=== PATIENT | female | born 1950 | race Caucasian/White ===

== ENCOUNTER 2018-09-23 20:20 | Emergency (ER) | payer MEDICAID ==
[~2018-09-23] VITALS: Ht 152.4 cm; Wt 61.3 kg
[2018-09-23 20:25] VITALS: BP 253/151
--- NOTE | 2018-09-23 20:30 | NUR ---
PT TAKEN TO BED 11
--- NOTE | 2018-09-23 20:37 | NUR ---
PT TO ED WITH C/O HEADACHE AND COUGH SUDDEN ONSET THIS AFTERNOON. NO S/S OF NEURO DEFICT. PT IS ALERT TO NAME, BIRTHDAY, PLACE, EVENT. LUNG SOUNDS CLEAR TO ASCULTATION. PT PLACED INTO BED, PENDING MD WEN. NO S/S OF DISTRESS NOTED.
--- NOTE | 2018-09-23 20:38 | NUR ---
ER NOTIFIED OF BP
--- NOTE | 2018-09-23 20:42 | NUR ---
PT TAKEN TO XRAY
--- NOTE | 2018-09-23 20:46 | NUR ---
PT RETURN FROM XRAY
--- NOTE | 2018-09-23 21:08 | NUR ---
Dr. Arriaga evaluating patient at bedside.
[2018-09-23] MEDS ORDERED: PROMETH/CODEINE 6.25-10MG/5ML 5 ML UDC PO ONE (21:20)
[2018-09-23] MEDS ORDERED: cloNIDine 0.1 MG TAB PO ONE ×2 (21:20→23:20)
[2018-09-23] MEDS ORDERED: ASPIRIN 81 MG TAB.CHEW PO ONE (21:20)
--- NOTE | 2018-09-23 21:34 | NUR ---
EKG PERFORMED AT BEDSIDE WITH FAMILY MEMBER PRESENT. PT COVERED IN GOWN DURING PROCEDURE.
--- NOTE | 2018-09-23 21:45 | NUR ---
PT TAKEN TO CT
--- NOTE | 2018-09-23 21:54 | NUR ---
RETURN FROM CT
[2018-09-23 21:58] LABS: ANION GAP 8.8 (8-16); CARBON DIOXIDE 29.2 mmol/L (21-32); CREATININE 0.8 mg/dL (0.6-1.3)
[2018-09-23 22:04] LABS: ALBUMIN 3.9 g/dL (3.4-5.0); TOTAL BILIRUBIN 0.9 mg/dL (0.0-1.0)
[2018-09-23] MEDS ORDERED: hydrALAZINE 20 MG/ML VIAL IM ONE (22:20)
[2018-09-23 22:29] LABS: BASOPHILS % (AUTO) 0.3 % (0.0-2.0); EOSINOPHILS # (AUTO) 0.4 K/uL (0-0.4); EOSINOPHILS % (AUTO) 3.8 % (0.0-4.0); HEMATOCRIT 42.2 % (36-48); HEMOGLOBIN 14.5 g/dL (12.0-16.0); LYMPHOCYTES # (AUTO) 1.4 K/uL (2.5-16.5); LYMPHOCYTES % (AUTO) 14.8 % (20.5-51.1); MEAN CORPUSCULAR HEMOGLOBIN 30 pg (27-31); MEAN CORPUSCULAR HGB CONC 34 g/dL (33-37); MEAN CORPUSCULAR VOLUME 87.7 fL (80-94); MONOCYTES # (AUTO) 0.5 K/uL (0.8-1.0); MONOCYTES % (AUTO) 5.4 % (1.7-9.3); NEUTROPHILS # (AUTO) 7.2 K/uL (1.8-7.7); NEUTROPHILS % (AUTO) 75.7 % (42.2-75.2); PLATELET COUNT (AUTO) 184 K/uL (140-450); RED BLOOD CELL COUNT(AUTO) 4.81 MIL/uL (4.20-5.40); RED CELL DISTRIBUTION WIDTH 14.1 % (11.6-13.7); WHITE BLOOD COUNT (AUTO) 9.6 K/uL (4.8-10.8)
--- NOTE | 2018-09-24 00:02 | NUR ---
Patient appears to be resting in bed. VVS . Respirations even and unlabored.
[2018-09-24 00:14] VITALS: BP 165/94
--- NOTE | 2018-09-24 00:17 | NUR ---
Patient discharged with v/s stable. Written and verbal after care instructions given and explained. Patient alert, oriented and verbalized understanding of instructions. Ambulatory with steady gait. All questions addressed prior to discharge. ID band removed. Patient advised to follow up with PMD. Rx of HYDRALAZINE, PROMETHAZINE given. Patient educated on indication of medication including possible reaction and side effects. Opportunity to ask questions provided and answered.
== END 2018-09-24 00:17 | disposition home or self-care (01) ==
LOC: MED 20:20
DX: R05 Cough (principal); I10 Essential (primary) hypertension; R07.89 Other chest pain
CPT/HCPCS: 36415; 70450; 71046; 80053; 84484; 85025; 87804; 93005; 96372; 99284; J0360

== ENCOUNTER 2018-10-22 17:03 | Emergency (ER) | payer MEDICAID ==
[~2018-10-22] VITALS: Ht 152.4 cm; Wt 72.6 kg
[2018-10-22 17:15] VITALS: BP 225/113
--- NOTE | 2018-10-22 17:20 | NUR ---
PT TRIAGED AND AMBULATED TO BED 10, REPORT TO DANIELA NI
--- NOTE | 2018-10-22 17:34 | NUR ---
68 Y/O F PT BIB MOTHER C/O HIGH BP AT HOME 200 SYSTOLIC, AND 10/10 ACHING HEADACHE STARTING THIS AM. PT DENIES N/V/D; SKIN IS INTACT, PINK/WARM/DRY; AAOX4, PERRL, WITH EVEN AND STEADY GAIT; LUNGS CLEAR BL, BREATHING UNLABORED; HR EVEN AND REGULAR, BL PERIPHERAL PULSES PRESENT; BS ACTIVE X4, NO TENDERNESS TO PALPATION, NO HEPATOSPLENOMEGALLY PALPATED, RESONANT TO PERCUSSION; PT DENIES ANY FEVER, CP, SOB, OR COUGH AT THIS TIME; PT STATES 10/10 PAIN AT THIS TIME; VSS; PATIENT POSITIONED FOR COMFORT; HOB ELEVATED; BEDRAILS UP X2; BED DOWN. HX---HTN MEDS---HYDALAZINE
--- NOTE | 2018-10-22 18:18 | NUR ---
PT BEING TAKEN TO CT AT THIS TIME
--- NOTE | 2018-10-22 18:20 | NUR ---
Kat patrick in [facility] - 10/22/18 at 1826 by [employer] pt in video conference with Dr Mckay
[2018-10-22] MEDS ORDERED: ENALAPRILAT 2.5 MG/2 ML VIAL IVP ONE (18:25)
[2018-10-22 18:26] LABS: BASOPHILS % (AUTO) 0.6 % (0.0-2.0); EOSINOPHILS # (AUTO) 0.3 K/uL (0-0.4); EOSINOPHILS % (AUTO) 4.4 % (0.0-4.0); HEMOGLOBIN 13.9 g/dL (12.0-16.0); LYMPHOCYTES # (AUTO) 2.2 K/uL (2.5-16.5); LYMPHOCYTES % (AUTO) 28.2 % (20.5-51.1); MEAN CORPUSCULAR HEMOGLOBIN 30 pg (27-31); MEAN CORPUSCULAR HGB CONC 34 g/dL (33-37); MEAN CORPUSCULAR VOLUME 88.3 fL (80-94); MONOCYTES # (AUTO) 0.6 K/uL (0.8-1.0); MONOCYTES % (AUTO) 7.2 % (1.7-9.3); NEUTROPHILS # (AUTO) 4.7 K/uL (1.8-7.7); NEUTROPHILS % (AUTO) 59.6 % (42.2-75.2); PLATELET COUNT (AUTO) 190 K/uL (140-450); RED BLOOD CELL COUNT(AUTO) 4.64 MIL/uL (4.20-5.40); RED CELL DISTRIBUTION WIDTH 14.3 % (11.6-13.7); WHITE BLOOD COUNT (AUTO) 7.8 K/uL (4.8-10.8)
[2018-10-22 18:47] LABS: ANION GAP 9.9 (8-16); CARBON DIOXIDE 29.9 mmol/L (21-32); CREATININE 0.9 mg/dL (0.6-1.3); POTASSIUM 3.8 mmol/L (3.5-5.1)
[2018-10-22 18:54] LABS: ALBUMIN 3.3 g/dL (3.4-5.0); TOTAL BILIRUBIN 0.7 mg/dL (0.0-1.0)
--- NOTE | 2018-10-22 19:15 | NUR ---
REPORT GIVEN TO TRAVON NI FOR CONTINUITY OF CARE.
--- NOTE | 2018-10-22 19:17 | NUR ---
ASSUMED CARE OF PT FROM RAINE SUAREZ
--- NOTE | 2018-10-22 19:39 | NUR ---
Dr. Arriaga evaluating patient at bedside.
[2018-10-22] MEDS ORDERED: cloNIDine 0.1 MG TAB PO ONE (19:50)
--- NOTE | 2018-10-22 20:21 | NUR ---
ER MD AWARE OF BP 250/124. NO CHANGE IN ORDERS AT THIS TIME.
[2018-10-22 20:36] VITALS: BP 250/124
--- NOTE | 2018-10-22 20:37 | NUR ---
Patient discharged with v/s stable. Written and verbal after care instructions given and explained. Patient alert, oriented and verbalized understanding of instructions. Ambulatory with steady gait. All questions addressed prior to discharge. ID band removed. Patient advised to follow up with PMD. Rx of MOTRIN. given. Patient educated on indication of medication including possible reaction and side effects. Opportunity to ask questions provided and answered. ER MD VILLALOBOS AWARE OF ELEVATED BP AND OKAY TO DISCHARGE.
== END 2018-10-22 20:37 | disposition home or self-care (01) ==
LOC: MED 17:03
DX: I10 Essential (primary) hypertension (principal); R51 Headache
CPT/HCPCS: 36415; 70450; 80053; 81002; 84484; 85025; 93005; 96374; 99284; J3490

== ENCOUNTER 2022-02-27 18:36 | Emergency (ER) | payer MEDICAID, OTHER ==
[~2022-02-27] VITALS: Ht 154.9 cm; Wt 66.7 kg
[2022-02-27 19:14] VITALS: BP 161/92
--- NOTE | 2022-02-27 19:31 | NUR ---
Blood for labwork drawn from right arm per technology specialist. Patient tolerated well.
[2022-02-27 19:42] LABS: BASOPHILS # (AUTO) 0.1 K/uL (0.00-0.22); BASOPHILS % (AUTO) 0.8 % (0.0-2.0); EOSINOPHILS # (AUTO) 0.7 K/uL (0-0.4); EOSINOPHILS % (AUTO) 9.1 % (0.0-4.0); HEMOGLOBIN 14.4 g/dL (12.0-16.0); MEAN CORPUSCULAR HEMOGLOBIN 32 pg (27-31); MEAN CORPUSCULAR HGB CONC 35 g/dL (33-37); MEAN CORPUSCULAR VOLUME 91.9 fL (80-94); MONOCYTES # (AUTO) 0.6 K/uL (0.8-1.0); MONOCYTES % (AUTO) 7.2 % (1.7-9.3); NEUTROPHILS # (AUTO) 3.4 K/uL (1.8-7.7); NEUTROPHILS % (AUTO) 43.9 % (42.2-75.2); PLATELET COUNT (AUTO) 259 K/uL (140-450); RED BLOOD CELL COUNT(AUTO) 4.46 MIL/uL (4.20-5.40); RED CELL DISTRIBUTION WIDTH 13.5 % (11.6-13.7); WHITE BLOOD COUNT (AUTO) 7.7 K/uL (4.8-10.8)
--- NOTE | 2022-02-27 19:47 | NUR ---
Patient returned back from radiology dept.
[2022-02-27 20:45] LABS: ALBUMIN 3.9 g/dL (3.4-5.0); ANION GAP 12.8 (8-16); POTASSIUM 3.8 mmol/L (3.5-5.1); TOTAL BILIRUBIN 0.3 mg/dL (0.0-1.0)
--- NOTE | 2022-02-27 21:09 | NUR ---
Dr. Patel examining patient.
[2022-02-27] MEDS ORDERED: NAPR-54 PO (23:22)
[2022-02-27 23:51] VITALS: BP 159/92
--- NOTE | 2022-02-27 23:51 | NUR ---
Patient discharged with v/s stable. Written and verbal after care instructions given and explained for Nonspecific chest pain. Patient alert, oriented and verbalized understanding of instructions. Ambulatory with steady gait. All questions addressed prior to discharge. ID band removed. Patient advised to follow up with PMD. Rx of Naproxen given. Patient educated on indication of medication including possible reaction and side effects. Opportunity to ask questions provided and answered.
== END 2022-02-27 23:51 | disposition home or self-care (01) ==
LOC: MED 18:36
DX: R07.0 Pain in throat (principal); I10 Essential (primary) hypertension; Z79.899 Other long term (current) drug therapy
CPT/HCPCS: 36415; 71045; 80053; 83880; 84484; 85025; 93005; 99285

== ENCOUNTER 2023-10-27 18:36 | Emergency (ER) | payer OTHER ==
[~2023-10-27] VITALS: Ht 152.4 cm; Wt 63.5 kg
[~2023-10-27 18:36] MED LIST: NAPR-54 PO
[2023-10-27 18:40] VITALS: BP 154/66; PULSE 66; RESP 16; TEMP 98.4; O2SAT 97
[2023-10-27 19:22] VITALS: BP 154/66; PULSE 66; RESP 16; TEMP 98.4; O2SAT 98
[2023-10-27 19:26] LABS: BASOPHILS % (AUTO) 0.6 % (0.0-2.0); EOSINOPHILS # (AUTO) 0.4 K/uL (0-0.4); EOSINOPHILS % (AUTO) 6.7 % (0.0-4.0); HEMATOCRIT 34.2 % (36-48); HEMOGLOBIN 12.4 g/dL (12.0-16.0); LYMPHOCYTES # (AUTO) 2.5 K/uL (2.5-16.5); LYMPHOCYTES % (AUTO) 39.9 % (20.5-51.1); MEAN CORPUSCULAR HEMOGLOBIN 32 pg (27-31); MEAN CORPUSCULAR HGB CONC 36 g/dL (33-37); MEAN CORPUSCULAR VOLUME 88.5 fL (80-94); MONOCYTES # (AUTO) 0.5 K/uL (0.8-1.0); MONOCYTES % (AUTO) 8.4 % (1.7-9.3); NEUTROPHILS # (AUTO) 2.8 K/uL (1.8-7.7); NEUTROPHILS % (AUTO) 44.4 % (42.2-75.2); PLATELET COUNT (AUTO) 241 K/uL (140-450); RED BLOOD CELL COUNT(AUTO) 3.87 MIL/uL (4.20-5.40); RED CELL DISTRIBUTION WIDTH 13.5 % (11.6-13.7); WHITE BLOOD COUNT (AUTO) 6.3 K/uL (4.8-10.8)
[2023-10-27 19:37] LABS: ANION GAP 8.9 (8-16); CALCIUM 9.5 mg/dL (8.5-10.1); CARBON DIOXIDE 30.5 mmol/L (21-32); CHLORIDE 102 mmol/L (98-107); CREATININE 1.1 mg/dL (0.6-1.3); GLUCOSE 116 mg/dL (74-106); POTASSIUM 3.4 mmol/L (3.5-5.1); SODIUM SERUM 138 mmol/L (136-145); UREA NITROGEN, BLOOD 26 mg/dL (7-18)
[2023-10-27 19:41] LABS: ALBUMIN 3.3 g/dL (3.4-5.0); BILIRUBIN,DIRECT 0.1 mg/dL (0.0-0.3); TOTAL BILIRUBIN 0.4 mg/dL (0.0-1.0); TOTAL PROTEIN, SERUM 7.5 g/dL (6.4-8.2)
[2023-10-27] MEDS: IBUPROFEN 600 MG TAB PO ONE (19:44)
[2023-10-27 20:19] LABS: APPEARANCE,URINE CLEAR (CLEAR); BILIRUBIN,URINE NEGATIVE (NEGATIVE); BLOOD, URINE NEGATIVE (NEGATIVE); COLOR,URINE YELLOW (YELLOW); LEUKOCYTE ESTERASE ,URINE NEGATIVE (NEGATIVE); NITRITE, URINE NEGATIVE (NEGATIVE); PH,URINE 7.5 (5.0-9.0); PROTEIN,URINE NEGATIVE (NEGATIVE); UGLUCOSE NEGATIVE (NEGATIVE); UROBILINOGEN,URINE 0.2 EU/dL (0.2 - 1)
[2023-10-27 21:16] VITALS: O2SAT 98
[2023-10-27] MEDS ORDERED: IBUP-2213 PO (21:22)
[2023-10-27] MEDS ORDERED: ONDA-188 SL (21:22)
== END 2023-10-27 21:42 | disposition home or self-care (01) ==
LOC: MED 18:36
DX: R10.31 Right lower quadrant pain (principal); E87.6 Hypokalemia; E88.09 Other disorders of plasma-protein metabolism, not elsewhere classified; I10 Essential (primary) hypertension; Z79.899 Other long term (current) drug therapy
CPT/HCPCS: 36415; 74177; 80048; 80076; 81003; 83690; 85025; 99285; Q9967